=== PATIENT | female | born 1970 | race Caucasian/White ===

== ENCOUNTER 2020-09-09 06:17 | Day surgery (SDC) | payer SELFPAY, OTHER ==
[2020-09-08 13:41] LABS: Hemoglobin 15.4 g/dL (12.0-15.0); Mean Corp Hgb Conc 32.8 g/dL (32-36); Mean Corpuscular Hgb 30.6 pg (27.0-32.0); Mean Corpuscular Volume 93.3 fL (81-99); Mean Platelet Vol. 9.6 fl (6.2-12.0); Platelet Count 502 K/mm3 (150-450); RBC Distribution Width CV 14.4 % (11.6-14.6); RBC Distribution Width SD 49.6 fl (35.1-43.9); Red Blood Count 5.04 M/mm3 (4.2-5.4)
[2020-09-08 14:13] LABS: Magnesium 2.3 mg/dL (1.6-2.6)
[2020-09-09] VITALS (16 sets, daily range): BP systolic 95–120; BP diastolic 59–77; PULSE 49–78; RESP 14–16; TEMP 36.1–37.7; O2SAT 93–100; BMI 27.2
--- NOTE | 2020-09-09 06:22 | PCM.HPOB.BLA ---
History and Physical Surgical History and Physical Date: 09/09/2020 Name: RONNIE MARINELLI Age: 49 Date of : 1970 Ronnie Marinelli, a 49 year old female 0 0 0 0 0, presents for Robotic assisted Total Laparoscopic Hysterectomy Bilateral Salpingectomy, cystoscopy on September 09, 2020 at 8:30. -- Ronnie is here for evaluation of pain that occurs the last 2 weeks of her menstrual cycle. She reports the pain can be pretty intense and can last for up to 30 minutes and then may resolve. The first 2 weeks after her cycle she does not have any discomfort. She reports menses comes q 21-28 days, lasting about 2-3 days. Denies heavy bleeding. Does report that she can occ have constipation with the pain. Intermittent pelvic pain which began months ago. Ronnie claims it started gradually and has been present months. It is located in the lower abdomen. Associated signs and symptoms are constipation. MEDICATIONS HISTORY: Patient is also takin. No Meds ALLERGIES: No Known Drug Allergies Infections - Chicken pox and Measles Illnesses - none Accidents - no injuries of consequence Hospitalizations - Ear surgeries Review of Systems: GENERAL - Denies fever, or chills SKIN - Denies skin changes EYES - Denies visual changes EARS - Denies difficulty hearing NOSE - Denies nasal congestion or bleeding MOUTH - Denies sore throat or difficulty swallowing NECK - Denies pain or swelling RESPIRATORY - Denies shortness of breath or wheezing CARDIOVASCULAR - Denies palpitations or chest pain GASTROINTESTINAL - Denies nausea, vomiting, diarrhea, constipation GENITOURINARY - pelvic pain mid-cycle to menses MUSCULOSKELETAL - Denies joint or muscle pain NEUROLOGICAL - Denies localized numbness or weakness PSYCHIATRIC - Denies depression or anxiety ENDOCRINE - Denies heat or cold intolerance, weight loss or gain HEMATO-IMMUNOLOGIC - Denies excessive bleeding with cuts SOCIAL HISTORY: Alcohol Use - denies drinking Smoking - denies smoking Diet - no special diet Lifestyle - single 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 Ear surgeries ; - PHYSICAL EXAM BP- 120/72 Sitting, Right arm, regular cuff Temp- 98.4 forehead Weight- 147.44657 lbs Height- 62 inch BMI:26.94 CONSTITUTIONAL - NAD, well nourished, and well developed SKIN - No rash, lesions, or ulcers HEENT - Normocephalic, PERRLA, EOMI NECK - No nodes, no nuchal rigidity and thyroid normal size and texture LYMPH NODES - Palpation of lymph nodes in neck and groins within normal limits LUNGS - CTA x2 without wheezes, crackles or rales CARDIAC - Regular rate and rhythm without rubs, murmurs, or gallops ABDOMEN - Without hepatosplenomegaly, distention, masses, rebound, or guarding; normal bowel sounds; no hernias EXTREMITIES - No edema or calf tenderness NEUROLOGICAL - Cranial nerves II-XII grossly intact PSYCHIATRIC - A and O to time, place, person, mood and affect External Genital Vagina - non-tender without lesions Urethra/Urethral Meatus - non-tender Bladder - non-tender Vagina - vaginal bautista are pink and moist without loss of rugae and no evidence of atropy Cervix - without cervical motion tenderness and has normal size and features without evident lesions Uterus - 8-9 cm in size, mobile. Mildly tender at sight of palpable mass. Mass 8 cm, lobular, firm Adnexa - clear without massess or tenderness ASSESSMENT/PLAN: 1. Leiomyoma Of Uterus, Unspecified Referral from [facility]. CT scan there shows 6x7.5x6.8cm fundal fibroid with signs of degeneration. Also, posterior 2.5x2.0cm uterus. Left adnexal cyst 2cm Pt with pelvic pain for 2 months that is debilitating. Pain with palpation. Nulliparous, exam wnl normal introitus and cervix. Discussed options r/b/a, based on pain and fibroid degeneration elects for RA TLH BS, cystoscopy Discussed removing ovaries but wishes to keep, reasonable. Pt for RA TLH BS, cystoscopy U/s here with uterus 9cm long 7cm wide. Multiple fibroids largest right lateral fundus 3.6x3.5cm. Other 3.3x3.1cm. several around 1.5/1.2 Pt on no medications, has never had surgery. No changes, no physical restrictions. Discussed r/b/a including risk of larger incision, pt states understanding
[2020-09-09] MEDS: Lactated Ringers 1,000 ML 40 ML IV ×4 (06:50→17:06)
[2020-09-09] MEDS: dexAMETHasone 10 MG/ML Vial 8 MG IV (07:00)
[2020-09-09 07:11] LABS: Internal QC Validated? YES +Cl - CLEAR BKGD; Pregnancy, Urine Negative Negative
[2020-09-09] MEDS: Gabapentin 600 MG Tablet PO (07:16)
[2020-09-09] MEDS: Celecoxib 200 MG Capsule 400 MG PO (07:16)
[2020-09-09] MEDS: Acetaminophen 500 MG Tablet 1000 MG PO ×2 (07:19→17:06)
[2020-09-09 07:41] LABS: Bedside Glucose 97 mg/dL (70-110)
--- NOTE | 2020-09-09 08:30 | HYST_PTH ---
PATIENT: RONNIE NAZARIO LOC: [facility] – [place] U#:[id number] AGE/SX: 49/F ROOM: RE09/09/[address]: Dr. Juan Pablo Bell MD : 1970 BED: DIS: 09/09/2020 SPEC #: [id number] RECD: 09/09/20 12:30 STATUS: INDER DAYSI #: [id number] SHARRON: 09/09/20 08:[address]: Juan Pablo Bell DEPT: SURGICAL PATHOLOGY RECD BY: Ирина Johnson ENTERED: 09/09/20 12:46 SP TYPE: HYSTERECT OTHR DR: Dr. Darren Baires MD Tissues: A - Uterus, NOS B - Fibrous tissue Procedures: Surgery Specimen Level III Surgery Specimen Level V HEADER OPERATION: ERAS, lap robotic hysterectomy, bilateral salpingectomy, cysto PRE-OP DIAGNOSIS: Leiomyoma of uterus; fundal fibroid; left adnexal cyst TISSUE SUBMITTED: A - Uterus, bilateral fallopian tubes, B - Fibroid MICROSCOPIC DIAGNOSIS A. Uterus, hysterectomy: Cervix - no pathologic change. Endometrium - transition endometrium. Endometrial polyp - benign polyp. Myometrium - leiomyomas. Right and left fallopian tubes - benign paratubal cysts. B. Fibroid, excision: Leiomyoma. AM:hadley 09/10/2020 COMMENT Case has been reviewed in consultation with Dr. Courtney who concurs with the above diagnosis. IDC:[email or web address] MICROSCOPIC DESCRIPTION Slides are reviewed. GROSS DESCRIPTION A - Received in fixative is one container labeled with the patient's name and designated uterus and bilateral fallopian tubes. The specimen consists of a hysterectomy specimen consisting of uterus with cervix and detached bilateral fallopian tubes. The uterus with cervix weighs 179 gm. The uterus is partially distorted. A subserosal nodule is noted. A focal area of serosal surface also shows a ragged surface most likely representing the site of specimen B. The specimen measures 10 x 10 x 5.5 cm. The serosal surface is hooper, glistening. The ectocervical mucosa is unremarkable. The external os is circular in contour. The endocervical canal measures 3.5 cm in length and the endocervical mucosa is hooper, glistening and unremarkable. The triangular endometrial cavity measures 5 cm in length and 3 cm in width. The endometrial cavity shows a hooper-pink polyp measuring 1.5 x 1 x 0.2 cm. The myometrial wall underneath the polyp is not indurated. The rest of the endometrium measures 0.1 cm in thickness. Sections of the uterine wall reveal multiple nodular masses intramural and subserosal in location. The largest nodular mass is subserosal in location and measures 4 cm in greatest dimension. The section of the uterine wall also reveal focal trabeculated surfaces suspicious for adenomyosis. Sections of these masses reveal hooper whorled cut surfaces without areas of hemorrhage, necrosis or cystic degeneration. The uninvolved uterine wall measures up to 3 cm in thickness. The fallopian tubes are not identified as right or left. One of the fallopian tubes measure 6 cm in length and 0.8 cm in diameter. The fimbrial end is identified. Sections reveal unremarkable cut surfaces. A paratubal cyst is noted and is 1 cm in greatest dimension. The second fallopian tube is similar in appearance to the first one and measures 7 cm in length and 0.8 cm in diameter. A paratubal cyst is noted measuring 1 cm in diameter. N[employer] Cal[employer] sections are submitted in 12 cassettes as follows: 1 - anterior cervix, 2 - posterior cervix, 3 & 4 - anterior uterine wall, 5 & 6 - posterior uterine wall, 7 - endometrial polyp, entirely submitted with underlying uterine wall. 8 - largest nodular mass, 9 & 10 - smaller and intermediate nodular masses, 11??one fallopian tube and paratubal cyst, 12 - second fallopian tube and paratubal cyst. B - Received in fixative is one container labeled with the patient's name and designated fibroid. The specimen consists of a piece of hooper nodular tissue weighing 121 gm and measures 9 x 6 x 5 cm. A focal area shows ragged surface and may represent line of resection from uterus. Sections of these masses reveal hooper whorled cut surfaces without areas of hemorrhage, necrosis or cystic degeneration. The specimen is serially sectioned. Narrow [employer] Calenderer sections are submitted in four cassettes. Cassette 1 also contains the ragged area. / SJ:hadley 09/09/20 TC:1 CPT: 26773, 07926
[2020-09-09] MEDS: Cefazolin 2 GM in 0.9% Normal Saline 100 ML IV (08:34)
--- NOTE | 2020-09-09 11:58 | OP.PCM_ITS ---
Report of Operation Date of Procedure: 09/09/20 Pre-Operative Diagnosis: Pelvic pain, leiomyomas Post-Operative Diagnosis: Pelvic pain, leiomyoma Surgery/Procedure Performed:: Robotic assisted total laparoscopic hysterectomy bilateral salpingectomy, cystoscopy Description of Surgical Findings:: Surgeon: Juan Pablo Bell MD Anesthesia: General EBL: 50 cc Urine output: 800 cc IV fluids: 2400 cc Complications: None Specimen: Uterus cervix bilateral fallopian tubes. Uterine leiomyoma Findings: Fundal pedunculated fibroid 5 cm in size. Right broad ligament fibroid 2 to 3 cm in size. Left broad ligament fibroids 1 cm and 2 cm. Otherwise normal uterus, cervix, bilateral fallopian tubes. And normal ovaries. Postprocedural cystoscopy with no pathology did see bilateral ureteral jets. After the procedure second-degree midline perineal laceration noted and repaired along with left vaginal wall sulcal laceration noted and repaired in typical fashion. Both lacerations were secondary to removal of large uterine fibroids. Good hemostasis was noted. Consent: Patient with pelvic pain and leiomyomas in need of robotic assisted total laparoscopic hysterectomy bilateral salpingectomy cystoscopy. Patient understands the risk of the procedure include but are not limited to visceral or vascular injury, prolonged hospitalization, blood loss need for transfusion, reoperation. Patient had understanding wished to proceed. All questions an swered consent was signed. Procedure: Patient was brought back to the OR where general anesthesia found to be adequate. 2 g of Ancef were given for infection prophylaxis. Patient prepared and draped in a dorsolithotomy position with yellowfin stirrups. Weighted speculum placed in posterior aspect of vagina and cervical dilators were used to dilate the cervix. Uterine manipulator was placed. Varies needle was placed at the umbilicus water safety test was passed and abdomen was insufflated. Midline supraumbilical 8 mm trocar was inserted laparoscope was inserted and above findings were noted. Bilateral 8 mm trochars were inserted under direct visualization. Right upper quadrant 8 mm trocar inserted under direct visualization. Left upper quadrant 5 mm trocar was inserted under direct visualization. Robot was docked. Fenestrated bipolar and monopolar scissors were inserted under direct visualization. 5 cm pedunculated fibroid at fundus was cut and cauterized placed in the posterior cul-de-sac and removed after removal of the uterus. Right round ligament was identified cut and cauterized anterior posterior portion of the broad ligament were cut and cauterized bladder flap was developed. Mesosalpinx of the right fallopian tube was cut and cauterized removed from abdominal cavity. Right ovarian ligament was cut and cauterized right uterine vessels were skeletonized cut and cauterized lateralized beyond the level of colpotomy. Left round ligament was cut and cauterized anterior portion and posterior portion of broad ligament were dissected bladder flap was further developed beyond the level of the colpotomy cup. Left mesosalpinx was cut and cauterized left lobe tube was removed from the abdominal cavity. Both fallopian tubes to be sent to pathology. Left [place] ro-ovarian ligament was cut and cauterized left uterine vessels were skeletonized cut and cauterized. Lateralized beyond the level of the colpotomy cup. Circumferential hysterotomy was performed. Uterus and cervix were removed. Good hemostasis was noted. Hysterotomy was closed in a continuous running fashion. Cystoscopy was performed and above findings were noted. Second-degree laceration and left sulcal laceration noted and repaired in typical fashion as noted above. Abdomen was deflated trochars removed under direct visualization. Skin was closed in subcuticular fashion. Good hemostasis noted. All counts correct x2. Patient tolerated procedure well was brought to recovery in stable condition. 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
--- NOTE | 2020-09-09 12:07 | DCINST_ITS ---
Discharge Diet: No Restrictions Discharge Activity: Return to Normal Activity, May Drive, May not drive while taking narcotic pain medications., May Shower, - - No tub baths for 2 weeks May resume sexual activity in: 6 weeks Lifting Restrictions: No lifting over 25 pounds for 3 weeks Call your doctor if your incision/area has: Continuous Slow Oozing, Foul Smelling Discharge Call your doctor if you observe: Fever of 101 or Higher, Shortness of breath, Chest pain Allergies/Adverse Reactions: Allergies No Known Allergies Allergy (Verified 09/09/20 07:08) Medications to take at Discharge Lactobacillus Acidophilus [Probiotic] 1 ea PO DAILY 09/02/20 Magnesium Oxide [Magnesium] 250 mg PO DAILY 09/02/20 Muscle Ease 1 tab PO DAILY 09/02/20 [place]-3 Fatty Acids/Fish Oil [Fish Oil 1,000 mg Capsule] 1 ea PO DAILY 09/02/20 Oxycodone [Oxyir] 5 mg PO Q6H PRN PRN 4 Days #24 tablet 09/09/20 The following prescriptions were given: Oxycodone [Oxyir] 5 mg PO Q6H PRN PRN 4 Days #24 tablet PRN Reason: Pain Score 6-10 Transmission Status: Sent to [facility] Primary Care Physician: Darren Baires MD [Primary Care Provider] - Test Results: Test results from this visit will be discussed in further detail at your follow- up appointment, if applicable. Please Follow Up With: Juan Pablo Bell MD When: 2 weeks
[2020-09-09] MEDS: Ondansetron 4 MG/2 ML Vial IV (13:22)
[2020-09-09] MEDS: Ketorolac 30 MG/ML Syringe IV (13:34)
== END 2020-09-09 19:42 | disposition home or self-care (01) ==
LOC: SDC 06:19 → AC 06:19
PROVIDERS: Anesthesiology; PCP Family Medicine; Referring Provider Obstetrics & Gynecology; Visit Provider Obstetrics & Gynecology
PROC: 0UT90ZZ Resection of Uterus, Open Approach (ICD-10-PCS; CPT 58571; principal; 2020-09-09 08:10)
DX: D25.9 Leiomyoma of uterus, unspecified (principal); N83.8 Other noninflammatory disorders of ovary, fallopian tube and broad ligament; N83.202 Unspecified ovarian cyst, left side; Z20.828 Contact with and (suspected) exposure to other viral communicable diseases
CPT/HCPCS: 00840; 58571; S2900; 36415; 81025; 82962; 83735; 85027; 86850; 86900; 86901; 87426; 88304; 88307; C9803; J7120; J2405

== ENCOUNTER → 2020-09-20 | Outpatient (CLI) | payer OTHER, SELFPAY ==
[2020-09-09 07:09] VITALS: BMI 27.2
== END | disposition home or self-care (01) ==
LOC: LABSPEC 16:31
PROVIDERS: PCP Family Medicine; Visit Provider Obstetrics & Gynecology
DX: R30.0 Dysuria (principal)
CPT/HCPCS: 87086; 87088